=== PATIENT | male | born 1970 | race Caucasian/White ===

== ENCOUNTER 2018-02-03 12:06 | Emergency (ER) | payer MEDICAID ==
--- NOTE | 2018-02-03 12:20 | Emergency Department Record ---
History of Present Illness - General Chief complaint: Pain Stated complaint: LT ELBOW PAIN Time Seen by Provider: 02/03/18 12:12 Source: Patient Mode of Arrival: Ambulatory Limitations: No limitations - History of Present Illness Initial comments: The patient states he has had L elbow pain for about 2 weeks. He denies any injury or trauma. He also denies any numbness or tingling to the L arm. Complaint: Extremity pain Onset/Timin -: Week(s) Location: Left, Elbow - Related Data Allergies Allergy/AdvReac Type Severity Reaction Status Date / Time No Known Drug Allergies Allergy Unverified 12/07/17 14:05 Travel Screening - Travel/Exposure Within Last 30 Days Have you traveled within the last 30 days?: No - Travel/Exposure Within Last Year Have you traveled outside the [place] in the last year?: No - Additonal Travel Details Have you been exposed to anyone with a communicable illness?: No - Travel Symptoms Symptom Screening: None Review of Systems Constitutional: Denies: Chills, Fever Eyes: Denies: Eye discharge ENT: Denies: Congestion Respiratory: Denies: Cough Past Medical History - SOCIAL HISTORY Smoking Status: Heavy tobacco smoker (>10/day) Alcohol Use: None Drug Use: None - RESPIRATORY Hx Respiratory Disorders: Yes Comment:: EMPHYSEMA - CARDIOVASCULAR Hx Cardio Disorders: Yes Hx Hypertension: Yes - NEURO Hx Neuro Disorders: Yes Hx Brain Tumor: Yes (REMOVED AT AGE 13) Hx Headaches: Yes (OCCASIONAL) - GI Hx GI Disorders: Yes Hx Reflux: Yes (CONTROLLED) - Hx Genitourinary Disorders: No - ENDOCRINE Hx Endocrine Disorders: No - MUSCULOSKELETAL Hx Musculoskeletal Disorders: Yes Hx Arthritis: Yes - PSYCH Hx Psych Problems: Yes Hx Anxiety: Yes (CONTROLLED WITH MEDS) - HEMATOLOGY/ONCOLOGY Hx Hematology/Oncology Disorders: Yes Hx Cancer: Yes (Brain DENIES THAT IT WAS CANCER) Family Medical History Any Significant Family History?: No Hx Cancer: Father, Brother/Sister, Grandparents Hx Heart Disease: Father, Brother/Sister, Grandparents Hx HTN: Father, Brother/Sister, Grandparents Hx Stroke: Brother/Sister Physical Exam - General General Appearance: Alert, Cooperative, No acute distress - Head Head exam: Atraumatic, Normocephalic - Eye Eye exam: Normal appearance - Extremities Extremities exam: Normal inspection (THe L elbow appears normal with no erythema , effusion, or bruising.), Full ROM, Tenderness (There is mild posterior L elbow tenderness over the olecranon.), Other (The L arm is NVI.). negative: Joint swelling Course Vital Signs 02/03/18 12:13 Temperature 97.2 F L Pulse Rate 95 H Respiratory 18 Rate Blood Pressure 123/71 Pulse Ox 97 - Reevaluation(s) Reevaluation #1: I did discuss the xray with the patient and the need for F/U. 02/03/18 12:55 Medical Decision Making - Data Complexity MDM Data: X-Ray Ordered and/or Reviewed - Radiology Data Radiology results: Image reviewed (L elbow: Olecranon spur. O/W neg.) Disposition Disposition: Discharge Clinical Impression: Chronic elbow pain Qualifiers: Laterality: left Qualified Code(s): M25.522 - Pain in left elbow Disposition: Home, Self-Care Condition: (2) Stable Instructions: Arthralgia (ED) Additional Instructions: Please continue your regular medicines and see your family doctor and Dr. Rodriguez in the Specialty clinic due to the chronic elbow pain. Referrals: [facility] Specialty Clinics [Provider Group] Forms: Patient Portal Access Time of Disposition: 12:51 Quality - Quality Measures Quality Measures: N/A - Blood Pressure Screening View Details: Yes Does Patient Have Any of the Following: No Blood Pressure Classification: Pre-Hypertensive BP Reading Systolic Measurement: 122 Diastolic Measurement: 76 Screening for High Blood Pressure: < Pre-Hypertensive BP, F/U Documented > [ G8950] Pre-Hypertensive Follow-up Interventions: Referral to alternative/primary care provider.
--- NOTE | 2018-02-05 12:27 | RADIOLOGY REPORT ---
EXAM: LEFT ELBOW HISTORY: POSTERIOR ELBOW PAIN FOR TWO WEEKS, NO KNOWN INJURY. TECHNIQUE: Three views of the left elbow were obtained. Comparison: No prior left elbow series. FINDINGS: There is a small spur along the posterior margin of the olecranon process. Elsewhere the left elbow appears essentially negative. No fracture, dislocation, or definite joint effusion seen. IMPRESSION: SMALL POSTERIOR OLECRANON SPUR. JOB NUMBER: [id number] MTDD
== END 2018-02-03 12:55 | disposition home or self-care (01) ==
LOC: ER 12:06
DX: M25.722 Osteophyte, left elbow (principal); I10 Essential (primary) hypertension; F17.210 Nicotine dependence, cigarettes, uncomplicated
CPT/HCPCS: 99283

== ENCOUNTER 2018-02-07 17:47 | Emergency (ER) | payer MEDICAID ==
--- NOTE | 2018-02-07 18:21 | Emergency Department Record ---
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 Currently he is taking motrin 800 mg Three times a day and the leyva was so bad he left work and came here. Patient was seen here recently for the same thing about one week ago and he had an xray of his elbow than. Patient denies drinking and he used to drink heavy. Seen by Dr. Silva on 02/03/2018. Currently no new falls or trauma he remembers. Location: Left, Elbow History of Same: No Radiation: Proximal, Distal Severity scale (1-10): 9 Quality: Aching Consistency: Constant Improves with: Nothing Worsens with: Nothing Associated Symptoms: Denies other symptoms - Related Data Previous Rx's Medication Instructions Recorded Naproxen [Naprosyn] 500 mg PO Q12H #20 tab. 02/07/18 Allergies Allergy/AdvReac Type Severity Reaction Status Date / Time No Known Drug Allergies Allergy Verified 02/07/18 17:55 Travel Screening - Travel/Exposure Within Last 30 Days Have you traveled within the last 30 days?: No Review of Systems Reviewed: No additional complaints except as noted below Constitutional: Reports: As per HPI. Denies: Chills, Fever, Malaise, Night sweats, Weakness, Weight change Eyes: Reports: As per HPI. Denies: Eye discharge, Eye pain, Photophobia, Vision change ENT: Reports: As per HPI. Denies: Congestion, Dental pain, Ear pain, Epistaxis , Hearing loss, Throat pain Respiratory: Reports: As per HPI. Denies: Cough, Dyspnea, Hemoptysis, Stridor, Wheezes Cardiovascular: Reports: As per HPI. Denies: Arrhythmia, Chest pain, Dyspnea on exertion, Edema, Murmurs, Orthopnea, Palpitations, Paroxysmal nocturnal dyspnea, Rheumatic Fever, Syncope Endocrine: Reports: As per HPI. Denies: Fatigue, Heat or cold intolerance, Polydipsia, Polyuria Gastrointestinal: Reports: As per HPI. Denies: Abdominal pain, Constipation, Diarrhea, Hematemesis, Hematochezia, Melena, Nausea, Vomiting Genitourinary: Reports: As per HPI. Denies: Dysuria, Frequency, Hematuria, Incontinence, Retention, Testicular pain, Testicular mass, Urgency Musculoskeletal: Reports: As per HPI, Arthralgia (left elbow). Denies: Back pain, Gout, Joint swelling, Myalgia, Neck pain Skin: Reports: As per HPI. Denies: Bruising, Change in color, Change in hair/ nails, Lesions, Pruritus, Rash Neurological: Reports: As per HPI. Denies: Abnormal gait, Confusion, Headache, Numbness, Paresthesias, Seizure, Tingling, Tremors, Vertigo, Weakness Psychiatric: Reports: As per HPI. Denies: Anxiety, Auditory hallucinations, Depression, Homicidal thoughts, Suicidal thoughts, Visual hallucinations Hematological/Lymphatic: Reports: As per HPI. Denies: Anemia, Blood Clots, Easy bleeding, Easy bruising, Swollen glands Past Medical History - SOCIAL HISTORY Smoking Status: Heavy tobacco smoker (>10/day) Alcohol Use: None Drug Use: None - RESPIRATORY Hx Respiratory Disorders: Yes Comment:: EMPHYSEMA - CARDIOVASCULAR Hx Cardio Disorders: Yes Hx Hypertension: Yes - NEURO Hx Neuro Disorders: Yes Hx Brain Tumor: Yes (REMOVED AT AGE 13) Hx Headaches: Yes (OCCASIONAL) - GI Hx GI Disorders: Yes Hx Reflux: Yes (CONTROLLED) - Hx Genitourinary Disorders: No - ENDOCRINE Hx Endocrine Disorders: No - MUSCULOSKELETAL Hx Musculoskeletal Disorders: Yes Hx Arthritis: Yes - PSYCH Hx Psych Problems: Yes Hx Anxiety: Yes (CONTROLLED WITH MEDS) - HEMATOLOGY/ONCOLOGY Hx Hematology/Oncology Disorders: Yes Hx Cancer: Yes (Brain DENIES THAT IT WAS CANCER) Family Medical History Any Significant Family History?: Yes Hx Cancer: Father, Brother/Sister, Grandparents Hx Heart Disease: Father, Brother/Sister, Grandparents Hx HTN: Father, Brother/Sister, Grandparents Hx Stroke: Brother/Sister Physical Exam - General General Appearance: Alert, Oriented x3, Cooperative, No acute distress - Head Head exam: Normal inspection - Eye Eye exam: Normal appearance, PERRL Pupils: Normal accommodation - ENT ENT exam: Normal exam, Mucous membranes moist, Normal external ear exam, Normal orophraynx, TM's normal bilaterally Ear exam: Normal external inspection. negative: External canal tenderness Nasal Exam: Normal inspection. negative: Discharge, Sinus tenderness Mouth exam: Normal external inspection, Tongue normal Teeth exam: Normal inspection. negative: Dental caries Throat exam: Normal inspection. negative: Tonsillar erythema, Tonsillar exudate - Neck Neck exam: Normal inspection, Full ROM. negative: Tenderness - Respiratory Respiratory exam: Normal lung sounds bilaterally. negative: Respiratory distress - Cardiovascular Cardiovascular Exam: Regular rate, Normal rhythm, Normal heart sounds - GI/Abdominal GI/Abdominal exam: Soft, Normal bowel sounds. negative: Tenderness - Rectal Rectal exam: Deferred - exam: Deferred - Extremities Extremities exam: Normal inspection, Full ROM, Normal capillary refill, Tenderness (olecronen process pain) - Back Back exam: Reports: Normal inspection, Full ROM. Denies: Muscle spasm, Rash noted, Tenderness - Neurological Neurological exam: Alert, Normal gait, Oriented X3, Reflexes normal - Psychiatric Psychiatric exam: Normal affect, Normal mood - Skin Skin exam: Dry, Intact, Normal color, Warm Course Vital Signs 02/07/18 17:52 Temperature 98.0 F Pulse Rate 99 H Respiratory 20 Rate Blood Pressure 145/85 Pulse Ox 99 Disposition Clinical Impression: Bursitis Qualifiers: Bursitis location: elbow Elbow bursitis location: olecranon bursitis Laterality : left Qualified Code(s): M70.22 - Olecranon bursitis, left elbow Disposition: Home, Self-Care Return To Work/School Note Provided: Yes Condition: (1) Good Instructions: Elbow Bursitis (ED) Additional Instructions: stop motrin and take naprosyn twice a day follow up with family or Dr Rodriguez in one week one arm duty today and back to work tomorrow Prescriptions: Naproxen [Naprosyn] 500 mg PO Q12H #20 tab.dr Forms: Patient Portal Access Time of Disposition: 18:32 Quality - Quality Measures Quality Measures: N/A - Blood Pressure Screening Does Patient Have Any of the Following: No Blood Pressure Classification: Pre-Hypertensive BP Reading Systolic Measurement: 145 Diastolic Measurement: 85 Screening for High Blood Pressure: < Pre-Hypertensive BP, F/U Documented > [ G8950] Pre-Hypertensive Follow-up Interventions: Referral to alternative/primary care provider.
[2018-02-07] MEDS ORDERED: NAPROXEN 250 MG TABLET PO ONE (18:32)
== END 2018-02-07 18:45 | disposition home or self-care (01) ==
LOC: ER 17:47
DX: M70.22 Olecranon bursitis, left elbow (principal); I10 Essential (primary) hypertension; F17.210 Nicotine dependence, cigarettes, uncomplicated
CPT/HCPCS: 99282

== ENCOUNTER 2018-03-01 09:29 | Day surgery (SDC) | payer MEDICAID ==
[2018-03-01] MEDS ORDERED: MIDAZOLAM HCL 2MG/2ML VIAL IV ONE (09:30)
[2018-03-01] MEDS ORDERED: FENTANYL PF 100MCG/2ML VIAL IV ONE (09:30)
[2018-03-01] MEDS ORDERED: HYDROCODONE/APAP 7.5/325MG TABLET PO ONE (09:30)
[2018-03-01] MEDS ORDERED: ACETAMINOPHEN 1,000 MG/100 ML BTL IV ONE (09:30)
[2018-03-01] MEDS ORDERED: SEVOFLURANE 250 ML INH ONE (09:30)
[2018-03-01] MEDS ORDERED: LIDOCAINE 2% MDV (20MG/ML) 20ML VIAL IV ONE (09:30)
[2018-03-01] MEDS ORDERED: ONDANSETRON HCL IV 4 MG/2 ML VIAL IVP ONE (09:30)
[2018-03-01] MEDS ORDERED: KETOROLAC 30 MG/ML VIAL IVP ONE (09:30)
[2018-03-01] MEDS ORDERED: PROPOFOL 10 MG/ML VIAL IV ONE (09:30)
--- NOTE | 2018-03-02 10:40 | Operative Note ---
DATE OF SURGERY: 03/01/2018 Surgeon: Jeffery Rodriguez D.O. Referring physician: Mague Justice N.P. PREOPERATIVE DIAGNOSIS: Olecranon spur of the right proximal ulna. POSTOPERATIVE DIAGNOSIS: Olecranon spur of the right proximal ulna. OPERATION: Excision osteophyte right proximal ulna. Anesthesia: General. PROCEDURE: This 47-year-old male was taken to the operating room and placed in the supine position on the operating room table. General anesthetic was administered. The right elbow was elevated, prepped with Hibiclens and draped in the usual sterile fashion. The right upper extremity was exsanguinated. The tourniquet inflated to 250 mmHg. A curvilinear incision was made centering over the palpable osteophyte and the tip of the olecranon of the right elbow. Dissection carried down through the skin and subcutaneous tissue. Hemostasis obtained with the electrocautery. The incision was carried down to the insertion of the triceps on the osteophyte. A longitudinal incision was made in line with these fibers and we then subperiosteally sharply dissected the tendon off of this osteophyte and removed it with an osteotome. The area was then smoothed with a rasp. It was further smoothed with the rongeur to a smooth contoured surface. The wound was irrigated with lactated Ringer's solution and the triceps tendon was repaired with 0 Vicryl and the subcutaneous tissue closed with 3-0 Vicryl and the skin with a running interlocking 4-0 nylon suture. Sterile dressings were applied with plaster splint immobilization with the elbow flexed at 90 degrees and the forearm in neutral position. GROSS PATHOLOGY: This patient had an osteophyte at the tip of the olecranon, which was very painful for him. This was removed in the manner described above. [facility]
== END 2018-03-01 12:10 | disposition home or self-care (01) ==
LOC: SUR 09:29
PROVIDERS: ATTEND Orthopaedic Surgery
DX: M25.721 Osteophyte, right elbow (principal); I10 Essential (primary) hypertension; E78.00 Pure hypercholesterolemia, unspecified; J44.9 Chronic obstructive pulmonary disease, unspecified; K21.9 Gastro-esophageal reflux disease without esophagitis; F31.9 Bipolar disorder, unspecified; F17.210 Nicotine dependence, cigarettes, uncomplicated
CPT/HCPCS: 25150; 01830; J1885; J2405; J3010

== ENCOUNTER 2018-08-10 13:08 | Emergency (ER) | payer MEDICAID ==
[2018-08-10] MEDS ORDERED: ACETAMINOPHEN 500 MG TABLET PO ONE (13:16)
--- NOTE | 2018-08-10 13:21 | Emergency Department Record ---
History of Present Illness - General Chief Complaint: Ankle/Foot Injury Stated Complaint: LT FOOT INJURY Time Seen by Provider: 08/10/18 13:16 Source: Patient Mode of Arrival: Ambulatory Limitations: No limitations - History of Present Illness Initial Comments: 48 yo male presents with an injury to his left foot and ankle. 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 This occurred about an hour prior to arrival. He has had persistent pain with weight bearing. No other injuries. No blood thinners. He did not hit his head. No headache, no neck pain, no chest, back, or other extremity pain. MD Complaint: Ankle injury, Foot injury -: Hour(s) (1) Type of Injury: Other (fall) Place: Work Severity: Moderate Improves With: Immobilization Worsens With: Movement, Palpation, Weight bearing Context: Fall Other Symptoms: Other (None) Treatments Prior to Arrival: Other (None) - Related Data Previous Rx's Medication Instructions Recorded Naproxen [Naprosyn] 500 mg PO Q12H #20 tab.dr 02/07/18 Hydrocodone/APAP 5/325Mg [[place] 1 each PO Q6H #12 tab 08/10/18 5Mg/325Mg] Allergies Allergy/AdvReac Type Severity Reaction Status Date / Time No Known Drug Allergies Allergy Verified 02/07/18 17:55 Review of Systems Constitutional: Denies: Chills, Fever, Malaise, Weakness Eyes: Denies: Eye discharge, Eye pain, Photophobia, Vision change ENT: Denies: Congestion, Throat pain Respiratory: Denies: Hemoptysis, Wheezes Cardiovascular: Denies: Chest pain, Palpitations, Syncope Endocrine: Denies: Fatigue Gastrointestinal: Denies: Abdominal pain, Diarrhea, Nausea, Vomiting Genitourinary: Denies: Dysuria, Frequency, Hematuria Musculoskeletal: Reports: As per HPI, Arthralgia. Denies: Back pain Skin: Denies: Bruising, Change in color, Rash Neurological: Denies: Headache Psychiatric: Denies: Anxiety Hematological/Lymphatic: Denies: Easy bleeding, Easy bruising Past Medical History - SOCIAL HISTORY Smoking Status: Heavy tobacco smoker (>10/day) Alcohol Use Comment: used to drink heavy none for 8 months - RESPIRATORY Hx Respiratory Disorders: Yes Hx Bronchitis: Yes Hx COPD: Yes (doesnt use inhalers "but I should") Hx Dyspnea: Yes Hx Pulmonary Embolism: Yes - CARDIOVASCULAR Hx Cardio Disorders: Yes Hx Hypertension: Yes (on meds good control) - NEURO Hx Neuro Disorders: Yes Hx Brain Tumor: Yes (REMOVED AT AGE 13) Hx Headaches: Yes (OCCASIONAL) Comment:: hx of concussion at age 13 - GI Hx GI Disorders: Yes Hx Reflux: Yes (fair control with zantac) - Hx Genitourinary Disorders: No - ENDOCRINE Hx Endocrine Disorders: No - MUSCULOSKELETAL Hx Musculoskeletal Disorders: Yes Hx Arthritis: Yes Comment:: elbow pain - PSYCH Hx Psych Problems: Yes Hx Anxiety: Yes (CONTROLLED WITH MEDS) Hx Depression: Yes (bipolar) - HEMATOLOGY/ONCOLOGY Hx Hematology/Oncology Disorders: No Hx Cancer: No (denies) Family Medical History Hx Cancer: Father, Brother/Sister, Grandparents Hx Heart Disease: Father, Brother/Sister, Grandparents Hx HTN: Father, Brother/Sister, Grandparents Hx Stroke: Brother/Sister Physical Exam - General General Appearance: Alert, Oriented x3, Cooperative, No acute distress Limitations: No limitations - Head Head exam: Atraumatic, Normal inspection - Eye Eye exam: Normal appearance, PERRL. negative: Conjunctival injection, Periorbital swelling, Scleral icterus - ENT ENT exam: Normal exam Ear exam: Normal external inspection Nasal Exam: Normal inspection Mouth exam: Normal external inspection - Neck Neck exam: Normal inspection, Full ROM. negative: Tenderness - Respiratory Respiratory exam: Normal lung sounds bilaterally. negative: Respiratory distr ess, Rhonchi, Stridor, Wheezes - Cardiovascular Cardiovascular Exam: Regular rate, Normal rhythm, Normal heart sounds - GI/Abdominal GI/Abdominal exam: Soft. negative: Tenderness - Rectal Rectal exam: Deferred - exam: Deferred - Extremities Extremities exam: Full ROM, Joint swelling, Normal capillary refill, Tenderness Image of Feet: 1 - lateral tenderness and swelling 2 - tender, normal inspection, no deformity - Back Back exam: Reports: Normal inspection, Full ROM. Denies: CVA tenderness (R), CVA tenderness (L), Muscle spasm, Paraspinal tenderness, Tenderness, Vertebral tenderness - Neurological Neurological exam: Alert, Oriented X3 - Psychiatric Psychiatric exam: Normal affect, Normal mood - Skin Skin exam: Dry, Intact, Normal color, Warm Course - Reevaluation(s) Reevaluation #1: 08/10/18 14:54 The XR was reviewed. Fracture of the anterior process of the calcaneous and lateral process of the talus. CT recommended and ordered. 08/10/18 15:[address] scan was reviewed The patient has a comminuted talar fracture predominately posterior, and a calcaneal fracture anterior at the calcaneal cuboid joint I SW Dr Arango of [facility] Podiatry and discussed the CT. He will see the patient on Monday in the office. The patient was re-examined head to toe. No headache, no neck pain, no back or lumbar pain. No other joint pain. He has a small contusion on the right anterior mg that is minimal tender. 08/10/18 16:10 At DC the leg, calf, ankle and foot are soft, mild swelling, warm to touch, strong pulses. No signs of compartment syndrome or any other complication from the fractures. We discussed reasons to return and close follow up. Disposition Disposition: Discharge Clinical Impression: Left calcaneal fracture Qualifiers: Encounter type: initial encounter Calcaneus location: unspecified portion of calcaneus Fracture type: closed Fracture alignment: displaced Qualified Code(s): S92.002A - Unspecified fracture of left calcaneus, initial encounter for closed fracture Talus fracture Qualifiers: Encounter type: initial encounter Fracture type: closed Talus location: unspecified portion of talus Fracture alignment: nondisplaced Laterality: left Qualified Code(s): S92.102A - Unspecified fracture of left talus, initial encounter for closed fracture Disposition: Home, Self-Care Condition: (1) Good Instructions: Foot Fracture in Adults (ED) Additional Instructions: No weight bearing Use crutches at all times when walking Follow up on Monday with Dr Arango in the podiatry clinic Take your CD with your to your appointment Prescriptions: Hydrocodone/APAP 5/325Mg [[place] 5Mg/325Mg] 1 each PO Q6H #12 tab Referrals: EVELYN ARANGO D.P.MWili [DOCTOR OF PODIATRY MEDICINE] - [facility] Specialty Clinics [Provider Group] Forms: Patient Portal Access Time of Disposition: 15:51 Quality - Quality Measures Quality Measures: N/A - Blood Pressure Screening Does Patient Have Any of the Following: No Blood Pressure Classification: Normal BP Reading Systolic Measurement: 113 Diastolic Measurement: 70 Screening for High Blood Pressure: < Normal BP, F/U Not Required > [G8783]
[2018-08-10] MEDS ORDERED: MORPHINE SULFATE 10MG/1ML **1ML VIAL IVP ONE (15:35)
--- NOTE | 2018-08-13 08:28 | RADIOLOGY REPORT ---
EXAM: LEFT ANKLE, THREE VIEWS HISTORY: PAIN AFTER FALL OFF LADDER. TECHNIQUE: Three views of the left ankle were obtained. Encounter: Initial. FINDINGS: There is fracture through the anterior process of the calcaneus, best seen on lateral view. On the AP view, there is vertical lucency through the lateral process of the talus. There is an additional subtle lucency at the talar dome. No lateral or medial malleolus fracture is identified. The ankle joint is symmetric. There is an ankle joint effusion and surround soft tissue swelling. IMPRESSION: FRACTURE THROUGH THE ANTERIOR PROCESS OF THE CALCANEUS, AND SUSPECTED FRACTURE OF THE LATERAL PROCESS OF THE TALUS. AN ADDITIONAL NONDISPLACED FRACTURE IS POSSIBLE AT THE TALAR DOME. CT IS RECOMMENDED FOR FURTHER EVALUATION. JOB NUMBER: [id number] MTDD
--- NOTE | 2018-08-13 08:40 | RADIOLOGY REPORT ---
EXAM: LEFT FOOT, THREE VIEWS HISTORY: PAIN AFTER FALL OFF LADDER. TECHNIQUE: AP, oblique, and lateral views of the left foot were obtained. Comparison: None. Encounter: Initial. FINDINGS: There is fracture through the anterior process of the calcaneus. Possible talar fractures, better seen on ankle radiographs. No other fracture or dislocation is identified in the left foot. IMPRESSION: FRACTURE THROUGH THE ANTERIOR PROCESS OF THE CALCANEUS, AND SUSPECTED TALAR FRACTURES BETTER SEEN ON LEFT ANKLE RADIOGRAPHS. CT OF THE LEFT ANKLE AND FOOT IS RECOMMENDED. JOB NUMBER: [id number] MTDD
--- NOTE | 2018-08-13 09:45 | CT SCAN REPORT ---
EXAM: CT OF THE LEFT LOWER EXTREMITY WITHOUT CONTRAST HISTORY: LEFT FOOT FRACTURES AFTER FALL OFF LADDER. TECHNIQUE: Standard CT imaging of the left ankle and foot without contrast was obtained. Coronal and sagittal reformations are provided. 3D reformations are created. FINDINGS: There is a comminuted nondisplaced fracture of the talus, with fracture lines involving the subtalar joints and talar dome articular surface. There is comminution at the lateral process. There is a minimally displaced fracture through the base of the anterior process of the calcaneus. There is also a small fracture from the lateral aspect of the calcaneus. The fracture at the anterior process of the calcaneus is intraarticular at the calcaneal cuboid joint. There is mild widening of this joint. No other fracture is identified. With additional review of the anterior calcaneus fracture, there is a vertical component extending all the way through the anterior portion of the calcaneus and related to the talus fracture, the talar fracture is predominantly posteriorly. A fracture line is not seen through the talar neck. IMPRESSION: COMMINUTED TALAR FRACTURE, AND COMMINUTED ANTERIOR CALCANEAL FRACTURE. THERE IS ALSO A SMALL FRACTURE FROM THE LATERAL ASPECT OF THE CALCANEUS. JOB NUMBER: [id number] MTDD
== END 2018-08-10 16:32 | disposition home or self-care (01) ==
LOC: ER 13:08
DX: S92.025A Nondisplaced fracture of anterior process of left calcaneus, initial encounter for closed fracture (principal); S92.145A Nondisplaced dome fracture of left talus, initial encounter for closed fracture; W11.XXXA Fall on and from ladder, initial encounter; Y93.H9 Activity, other involving exterior property and land maintenance, building and construction; Y92.007 Garden or yard of unspecified non-institutional (private) residence as the place of occurrence of the external cause; Y99.0 Civilian activity done for income or pay; I10 Essential (primary) hypertension; F17.210 Nicotine dependence, cigarettes, uncomplicated
CPT/HCPCS: 29515; 99284 ×2; 96374; 73610; 73630; 73700; J2270

== ENCOUNTER 2019-01-22 08:45 | Emergency (ER) | payer MEDICAID ==
[2019-01-22] MEDS: KETOROLAC 30 MG/ML VIAL IVP ONE (08:58)
--- NOTE | 2019-01-22 08:58 | Emergency Department Record ---
History of Present Illness - General Chief complaint: Pain Stated complaint: RIB PAIN Time Seen by Provider: 01/22/19 08:50 Source: Patient Mode of Arrival: Ambulatory Limitations: No limitations - History of Present Illness Initial comments: 48 yo male presents with constant left sided rib pain since . 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 He was bending over a toilet and felt a sharp pain on the left chest. The pain has been constant since then. It is sharp, it worsens with changes in position, movements, coughing, and to palpate. He has been coughing more for the last 3 days with some production. No fever. No shortness of breath. No leg pain. The pain hurts lateral left chest in the mid chest to the lower rib margins. No rash. No history of prior heart or lung issues. PCP is Dr Ashley in [place]. Complaint: Other (Left chest wall pain) -: Days(s) Location: Other (Left ribs) -: Yes Myalgia Radiation: Other Quality: Aching, Sharp Consistency: Constant Improves with: Immobilization Worsens with: Palpation, Weight bearing Associated Symptoms: Denies other symptoms - Related Data Home Medications Medication Instructions Recorded Confirmed Last Taken Esomeprazole Magnesium [Nexium] 40 mg PO DAILY 01/22/19 01/22/19 1 Day Ago ~01/21/19 Previous Rx's Medication Instructions Recorded Azithromycin [Zithromax] 250 mg PO DAILY #6 tab 01/22/19 Allergies Allergy/AdvReac Type Severity Reaction Status Date / Time No Known Drug Allergies Allergy Verified 01/22/19 08:53 Review of Systems Constitutional: Denies: Chills, Fever, Malaise, Weakness Eyes: Denies: Eye discharge ENT: Denies: Congestion, Throat pain Respiratory: Reports: Cough. Denies: Dyspnea, Hemoptysis, Wheezes Cardiovascular: Reports: Chest pain. Denies: Edema, Palpitations, Syncope Endocrine: Denies: Fatigue, Polydipsia, Polyuria Gastrointestinal: Denies: Abdominal pain, Diarrhea, Nausea, Vomiting Genitourinary: Denies: Dysuria, Frequency, Hematuria Musculoskeletal: Denies: Arthralgia, Back pain, Myalgia, Neck pain Neurological: Denies: Headache, Numbness, Tingling, Weakness Psychiatric: Denies: Anxiety Hematological/Lymphatic: Denies: Easy bleeding, Easy bruising Past Medical History - SOCIAL HISTORY Smoking Status: Heavy tobacco smoker (>10/day) Alcohol Use Comment: used to drink heavy none for 8 months - RESPIRATORY Hx Respiratory Disorders: Yes Hx Bronchitis: Yes Hx COPD: Yes (doesnt use inhalers "but I should") Hx Dyspnea: Yes Hx Pulmonary Embolism: Yes - CARDIOVASCULAR Hx Cardio Disorders: Yes Hx Hypertension: Yes (on meds good control) - NEURO Hx Neuro Disorders: Yes Hx Brain Tumor: Yes (REMOVED AT AGE 13) Hx Headaches: Yes (OCCASIONAL) Comment:: hx of concussion at age 13 - GI Hx GI Disorders: Yes Hx Reflux: Yes (fair control with zantac) - Hx Genitourinary Disorders: No - ENDOCRINE Hx Endocrine Disorders: No - MUSCULOSKELETAL Hx Musculoskeletal Disorders: Yes Hx Arthritis: Yes Comment:: elbow pain - PSYCH Hx Psych Problems: Yes Hx Anxiety: Yes (CONTROLLED WITH MEDS) Hx Depression: Yes (bipolar) - HEMATOLOGY/ONCOLOGY Hx Hematology/Oncology Disorders: No Hx Cancer: No (denies) Family Medical History Hx Cancer: Father, Brother/Sister, Grandparents Hx Heart Disease: Father, Brother/Sister, Grandparents Hx HTN: Father, Brother/Sister, Grandparents Hx Stroke: Brother/Sister Physical Exam - General General Appearance: Alert, Oriented x3, Cooperative, No acute distress Limitations: No limitations - Head Head exam: Atraumatic, Normal inspection - Eye Eye exam: Normal appearance. negative: Conjunctival injection - ENT ENT exam: Normal exam Ear exam: Normal external inspection Nasal Exam: Normal inspection Mouth exam: Normal external inspection - Neck Neck exam: Normal inspection. negative: Lymphadenopathy, Tenderness - Respiratory Respiratory exam: Normal lung sounds bilaterally, Chest wall tenderness (The left rib/chest wall pain is reproducible with tenderness over the mid ribs to lower ribs, no crepitus, . No rash). negative: Accessory muscle use, Decreased breath sounds, Prolonged expiratory, Respiratory distress, Rhonchi, Stridor, Wheezes - Cardiovascular Cardiovascular Exam: Regular rate, Normal rhythm, Normal heart sounds Peripheral Pulses: 2+: Radial (L) - GI/Abdominal GI/Abdominal exam: Soft, Tenderness (tender LUQ but soft). negative: Distended, Guarding, Rebound, Rigid - Rectal Rectal exam: Deferred - exam: Deferred - Extremities Extremities exam: Normal inspection - Back Back exam: Reports: CVA tenderness (L). Denies: CVA tenderness (R), Paraspinal tenderness, Tenderness - Neurological Neurological exam: Alert, Oriented X3 - Psychiatric Psychiatric exam: Normal affect, Normal mood. negative: Agitated, Anxious - Skin Skin exam: Dry, Intact, Normal color, Warm Course Vitals reviewed No fever, hypoxia or tachycardia - Reevaluation(s) Reevaluation #1: 01/22/19 08:59 EKG #1: 08:51 Rate: 89 Rhythm: sinus Laurel: normal Intervals: normal ST segments: normal Normal EKG 01/22/19 09:16 The CBC was reviewed. The WBC is 14 The Hgb is 11.3 01/22/19 09:16 The Toradol was given. He reports no changes in pain level. On recheck he is foundry tender in the LUQ. 01/22/19 09:27 CXR negative for acute process Given the labs and LUQ tenderness associated I recommend CT as well 01/22/19 10:59 01/22/19 12:36 CT reviewed. See full report. Right sided tree in bud opacities. He will be treated with another round of antibiotics and encourage follow up in the next one week with his PCP 01/22/19 12:[address] was given to the patient with the instructions to review it with his doctor in the next week Medical Decision Making - Lab Data Result diagrams: 01/22/19 08:55 01/22/19 08:55 Disposition Disposition: Discharge Clinical Impression: Chest wall pain, Bronchiolitis Disposition: Home, Self-Care Condition: (1) Good Instructions: Bronchiolitis (ED), Chest Wall Pain (ED) Additional Instructions: Review this ER visit and the tests performed with your family doctor Call your doctor for the next available follow up appointment Return to the ER for a recheck if worse, any new concerns or questions Take the prescriptions provided as directed Prescriptions: Azithromycin [Zithromax] 250 mg PO DAILY #6 tab Forms: Patient Portal Access Time of Disposition: 12:38 Quality - Quality Measures Quality Measures: N/A - Blood Pressure Screening Does Patient Have Any of the Following: Active Dx of HTN Blood Pressure Classification: Pre-Hypertensive BP Reading Systolic Measurement: 134 Diastolic Measurement: 79 Screening for High Blood Pressure: Patient Exclusion, Hx of HTN [G9744]
[2019-01-22 09:04] LABS: BASO % 0.4 % (0-6); GRAN % 74.3 % (47-80); HEMATOCRIT 36.3 % (42.0-52.0); HEMOGLOBIN 11.3 gm/dl (14.0-18.0); LYMPH % 15.7 % (16-45); MEAN CELL VOLUME 88.5 fl (81-97); MEAN CORPUSCULAR HGB CONC 31.1 g/dl (32-36); MEAN PLATELET VOLUME 10.1 fl (7.4-10.4); MONO % 7.6 % (0-9); PLATELET COUNT 317 K/uL (130-400); WHITE BLOOD COUNT W/O DIFF 14.8 K/uL (4.2-12.2)
[2019-01-22 09:09] LABS: MEAN CORPUSCULAR HEMOGLOBIN 27.5 pg (27-33)
[2019-01-22 09:17] LABS: BLOOD UREA NITROGEN 14 mg/dL (6-20); CREATININE 0.7 mg/dL (0.7-1.2); EST GLOMERULAR FILTRATION RATE > 60 mL/min
[2019-01-22 09:20] LABS: GLUCOSE,RANDOM 106 mg/dL (74-109)
--- NOTE | 2019-01-22 09:29 | RADIOLOGY REPORT ---
EXAMINATION: Two View Chest Radiographs EXAM DATE: 01/22/2019 9:25 AM TECHNIQUE: Frontal and lateral views INDICATION: left chest pain COMPARISON: None ENCOUNTER: Not applicable FINDINGS: Cardiomediastinal structures unremarkable. Hyperinflation. Discoid atelectasis or scarring left base. No pulmonary consolidation or infiltration. No pneumothorax or pleural effusion. IMPRESSION: 1. Hyperinflation 2. Discoid atelectasis or scarring left base Dictated by: Devin Doherty MD on 01/22/2019 9:25 AM. .
[2019-01-22] MEDS: MORPHINE SULFATE 5 MG/ML VIAL IVP ONE (09:39)
--- NOTE | 2019-01-22 12:32 | CT SCAN REPORT ---
EXAMINATION: CT Chest, Abdomen and Pelvis with Contrast EXAM DATE: 01/22/2019 11:59 AM TECHNIQUE: Standard protocol CT images of the chest, abdomen and pelvis were performed with intraveno us contrast. Coronal and sagittal images were reconstructed. IV Contrast: The amount and type of contrast are recorded in the medical record. INDICATION: left rib, left upper quadrant tenderness COMPARISON: None ENCOUNTER: Not applicable CT CHEST FINDINGS: Base of Neck & Axillae: There is no adenopathy. Mediastinum & Elina: There is no signal mediastinal or hilar adenopathy. Upper normal mediastinal lymp h nodes. Cardiovascular: The heart has a normal size. There is no pericardial effusion. The thoracic aorta an d main pulmonary artery have a normal caliber. Tracheobronchial Structures: There is no bronchial wall thickening or bronchiectasis. Lung Parenchyma: Moderate scattered tree-in-bud opacities throughout the right upper lobe, to lesser extent posterior aspect of the right middle lobe, and moderately involving the right lower lobe. Left lung is fairly clear other than minimal subsegmental atelectasis or scarring at the lingula. Pleural Space: There are no pleural effusions. There is no pneumothorax. Chest Wall & Musculoskeletal: No suspicious bone lesions. Unremarkable ribs. No mass. No focal fluid collection. CT ABDOMEN AND PELVIS FINDINGS: Hepatobiliary: The liver has a normal size with a smooth surface. The hepatic and portal veins appear patent. There is no biliary dilatation and the gallbladder is unremarkable. Pancreas: The pancreas is normal. Spleen: Nonenlarged. Scattered tiny calcified granulomas present. No evidence of contusion, laceratio n, or subcapsular hematoma. No lesions. Adrenals: The adrenal glands are normal. Kidneys, Ureters, & Bladder: Both kidneys have a normal size and there is no hydronephrosis. There is a partially exophytic cortical 7 mm hypodensity probably representing a cyst anteriorly at the lower pole of the right kidney. Otherwise unremarkable kidneys. Both ureters have a normal caliber and th e urinary bladder is unremarkable. Gastrointestinal: The stomach and small bowel are normal with no obstruction or inflammation. The rachel endix is normal. The large bowel is normal. There is a mostly calcified ovoid 12 x 17 mm nodule in t he distal perisigmoidal region of the rectosigmoid colon just right of midline which probably relates to sequela of chronic epiploic appendagitis. Reproductive Organs: Unremarkable Lymphatic System: There is no adenopathy within the abdomen or pelvis. Vasculature: Normal caliber abdominal aorta with mild atherosclerotic disease. The main abdominal ao rtic branch vessels including the celiac, mesenteric, and renal arteries appear patent with no eviden ce of a stenosis. There is no evidence for mesenteric venous thrombosis. Peritoneum: No free fluid, free air, or inflammation Abdominal Wall & Musculoskeletal: No suspicious bone lesions. IMPRESSION: 1. Right lung nonspecific tree-in-bud opacities diffusely which may more commonly represent infective bronchiolitis. Other inflammatory or neoplastic processes not excluded. 2. Incidental findings as above. Dictated by: Clyde Chaparro DO on 01/22/2019 12:10 PM. .
== END 2019-01-22 13:04 | disposition home or self-care (01) ==
LOC: ER 08:45
DX: J21.9 Acute bronchiolitis, unspecified (principal); R07.89 Other chest pain; J44.9 Chronic obstructive pulmonary disease, unspecified; I10 Essential (primary) hypertension; F17.210 Nicotine dependence, cigarettes, uncomplicated
CPT/HCPCS: 71046; 71260; 74177; 80048; 85025; 93005; 93010; 96374; 96375; 99284; J1885

== ENCOUNTER 2019-02-11 15:41 | Inpatient (IN) | payer MEDICAID ==
[2019-02-11 16:38] LABS: INFLUENZA A NEGATIVE (NEGATIVE); INFLUENZA B NEGATIVE (NEGATIVE)
[2019-02-11] MEDS ORDERED: ONDANSETRON HCL IV 4 MG/2 ML VIAL IVP ONE (16:55)
[2019-02-11] MEDS ORDERED: ACETAMINOPHEN 1,000 MG/100 ML BTL IVPB ONE (16:56)
[2019-02-11 17:21] LABS: ABSOLUTE NEUTROPHIL COUNT 10.89; BASO % 0.3 % (0-6); EOS % 0.3 % (0-6); GRAN % 74.9 % (47-80); HEMATOCRIT 34.1 % (42.0-52.0); HEMOGLOBIN 10.8 gm/dl (14.0-18.0); LYMPH % 13.2 % (16-45); MEAN CELL VOLUME 87.2 fl (81-97); MEAN CORPUSCULAR HEMOGLOBIN 27.6 pg (27-33); MEAN CORPUSCULAR HGB CONC 31.7 g/dl (32-36); MEAN PLATELET VOLUME 10.6 fl (7.4-10.4); MONO % 11.3 % (0-9); PLATELET COUNT 247 K/uL (130-400); RED BLOOD COUNT 3.91 M/uL (4.40-5.70); RED CELL DISTRIBUTION WIDTH 14.7 % (11.5-14.5); WHITE BLOOD COUNT W/O DIFF 14.6 K/uL (4.2-12.2)
[2019-02-11 17:29] LABS: BLOOD UREA NITROGEN 15 mg/dL (6-20); CREATININE 0.7 mg/dL (0.7-1.2); EST GLOMERULAR FILTRATION RATE > 60 mL/min
[2019-02-11 17:30] LABS: TOTAL PROTEIN 7.2 g/dL (6.6-8.7)
[2019-02-11 17:32] LABS: GLUCOSE,RANDOM 113 mg/dL (74-109)
[2019-02-11 17:34] LABS: ALT/SGPT 14 U/L (<41); AST/SGOT 13 U/L (10.0-50.0)
[2019-02-11 17:35] LABS: ALBUMIN 3.6 g/dL (4.0-5.0); ALKALINE PHOSPHATASE 122 U/L (40-129)
--- NOTE | 2019-02-11 17:43 | RADIOLOGY REPORT ---
EXAMINATION: Two View Chest Radiographs EXAM DATE: 02/11/2019 5:26 PM TECHNIQUE: Frontal and lateral views INDICATION: cough COMPARISON: Chest CT 01/22/2019 ENCOUNTER: Not applicable FINDINGS: New dense airspace disease in the superior segment of the right lower lobe measuring 9 cm in size con sistent with pneumonia. Diaphragm and osseous structures are unremarkable. IMPRESSION: 1. New dense consolidation in the superior segment of the right lower lobe consistent with pneumonia. Dictated by: Dinesh Ureña MD on 02/11/2019 5:40 PM. .
[2019-02-11] MEDS ORDERED: CEFTRIAXONE 1GM/50ML BAG 1 GM/50 ML BAG IVPB ONE (18:17)
--- NOTE | 2019-02-11 18:17 | Emergency Department Record ---
History of Present Illness - General Chief complaint: Vomiting Stated complaint: VOMITTING,FEVER,HEADACHE Time Seen by Provider: 02/11/19 16:44 Source: Patient, Family Mode of Arrival: Ambulatory Limitations: No limitations - History of Present Illness Initial comments: pt was here on 01/22 and was dxd w bronchiolitis and took a course of zithromax. pt feels hes gotten worse with prod yellow cough and now he is vomiting and aches all over MD complaint: Nausea, Vomiting Onset/Timin -: Days(s) Severity: Moderate Consistency: Constant, Getting worse Improves with: None Worsens with: None Associated Symptoms: Fever/chills, Other - Related Data Allergies Allergy/AdvReac Type Severity Reaction Status Date / Time No Known Drug Allergies Allergy Verified 01/22/19 08:53 Travel Screening - Travel/Exposure Within Last 30 Days Have you traveled within the last 30 days?: No - Travel/Exposure Within Last Year Have you traveled outside the [place] in the last year?: No - Additonal Travel Details Have you been exposed to anyone with a communicable illness?: No - Travel Symptoms Symptom Screening: Joint & Muscle Aches Review of Systems Reviewed: No additional complaints except as noted below Constitutional: Reports: As per HPI. Denies: Chills, Fever, Malaise, Night sweats, Weakness, Weight change Eyes: Reports: As per HPI. Denies: Eye discharge, Eye pain, Photophobia, Vision change ENT: Reports: As per HPI. Denies: Congestion, Dental pain, Ear pain, Epistaxis, Hearing loss, Throat pain Respiratory: Reports: As per HPI, Cough, Dyspnea. Denies: Hemoptysis, Stridor, Wheezes Cardiovascular: Reports: As per HPI. Denies: Arrhythmia, Chest pain, Dyspnea on exertion, Edema, Murmurs, Orthopnea, Palpitations, Paroxysmal nocturnal dyspnea, Rheumatic Fever, Syncope Endocrine: Reports: As per HPI. Denies: Fatigue, Heat or cold intolerance, Polydipsia, Polyuria Gastrointestinal: Reports: As per HPI, Nausea, Vomiting. Denies: Abdominal pain, Constipation, Diarrhea, Hematemesis, Hematochezia, Melena Genitourinary: Reports: As per HPI. Denies: Dysuria, Frequency, Hematuria, Incontinence, Retention, Testicular pain, Testicular mass, Urgency Musculoskeletal: Reports: As per HPI, Myalgia. Denies: Arthralgia, Back pain, Gout, Joint swelling, Neck pain Skin: Reports: As per HPI. Denies: Bruising, Change in color, Change in hair/nails, Lesions, Pruritus, Rash Neurological: Reports: As per HPI. Denies: Abnormal gait, Confusion, Headache, Numbness, Paresthesias, Seizure, Tingling, Tremors, Vertigo, Weakness Psychiatric: Reports: As per HPI. Denies: Anxiety, Auditory hallucinations, Depression, Homicidal thoughts, Suicidal thoughts, Visual hallucinations Hematological/Lymphatic: Reports: As per HPI. Denies: Anemia, Blood Clots, Easy bleeding, Easy bruising, Swollen glands Past Medical History - SOCIAL HISTORY Smoking Status: Heavy tobacco smoker (>10/day) Alcohol Use: None Drug Use: None - RESPIRATORY Hx Respiratory Disorders: Yes Hx Bronchitis: Yes Hx COPD: Yes (doesnt use inhalers "but I should") Hx Dyspnea: Yes Hx Pulmonary Embolism: Yes - CARDIOVASCULAR Hx Cardio Disorders: Yes Hx Hypertension: Yes (on meds good control) - NEURO Hx Neuro Disorders: Yes Hx Brain Tumor: Yes (REMOVED AT AGE 13) Hx Headaches: Yes (OCCASIONAL) Comment:: hx of concussion at age 13 - GI Hx GI Disorders: Yes Hx Reflux: Yes (fair control with zantac) - Hx Genitourinary Disorders: No - ENDOCRINE Hx Endocrine Disorders: No - MUSCULOSKELETAL Hx Musculoskeletal Disorders: Yes Hx Arthritis: Yes Comment:: elbow pain - PSYCH Hx Psych Problems: Yes Hx Anxiety: Yes (CONTROLLED WITH MEDS) Hx Depression: Yes (bipolar) - HEMATOLOGY/ONCOLOGY Hx Hematology/Oncology Disorders: No Hx Cancer: No (denies) Family Medical History Any Significant Family History?: No Hx Cancer: Father, Brother/Sister, Grandparents Hx Heart Disease: Father, Brother/Sister, Grandparents Hx HTN: Father, Brother/Sister, Grandparents Hx Stroke: Brother/Sister Physical Exam - General General Appearance: Alert, Oriented x3, Cooperative, Mild distress - Head Head exam: Normal inspection - Eye Eye exam: Normal appearance, PERRL, EOMI Pupils: Normal accommodation - ENT ENT exam: Normal exam, Mucous membranes moist, Normal external ear exam, Normal orophraynx Ear exam: Normal external inspection. negative: External canal tenderness Nasal Exam: Normal inspection. negative: Discharge, Sinus tenderness Mouth exam: Normal external inspection, Tongue normal Teeth exam: Normal inspection. negative: Dental caries Throat exam: Normal inspection. negative: Tonsillar erythema, Tonsillar exudate - Neck Neck exam: Normal inspection, Full ROM. negative: Tenderness - Respiratory Respiratory exam: Rales. negative: Respiratory distress - Cardiovascular Cardiovascular Exam: Regular rate, Normal rhythm, Normal heart sounds - GI/Abdominal GI/Abdominal exam: Soft, Normal bowel sounds. negative: Tenderness - Rectal Rectal exam: Deferred - exam: Deferred - Extremities Extremities exam: Normal inspection, Full ROM, Normal capillary refill. negative: Tenderness - Back Back exam: Reports: Normal inspection, Full ROM. Denies: Muscle spasm, Rash noted, Tenderness - Neurological Neurological exam: Alert, CN II-XII intact, Normal gait, Oriented X3 - Psychiatric Psychiatric exam: Normal affect, Normal mood - Skin Skin exam: Dry, Intact, Normal color, Warm Course Vital Signs 02/11/19 02/11/19 16:13 17:31 Temperature 99.6 F Pulse Rate 95 H Pulse Rate [ 90 Pulse Ox Probe] Respiratory 18 16 Rate Blood Pressure 123/78 Blood Pressure 115/69 [Right Arm] Pulse Ox 97 98 Medical Decision Making - Lab Data Result diagrams: 02/11/19 17:10 02/11/19 17:10 Lab Results 02/11/19 02/11/19 02/11/19 Range/Units 17:10 17:10 Unknown WBC 14.6 H (4.2-12.2) K/uL RBC 3.91 L (4.40-5.70) M/uL Hgb 10.8 L (14.0-18.0) gm/dl Hct 34.1 L (42.0-52.0) % MCV 87.2 (81-97) fl MCH 27.6 (27-33) pg MCHC 31.7 L (32-36) g/dl RDW 14.7 H (11.5-14.5) % Plt Count 247 (130-400) K/uL MPV 10.6 H (7.4-10.4) fl Gran % 74.9 (47-80) % Lymphocytes % 13.2 L (16-45) % Monocytes % 11.3 H (0-9) % Eosinophils % 0.3 (0-6) % Basophils % 0.3 (0-6) % Absolute Neutrophils 10.89 Sodium 135 L (136-145) mmol/L Potassium 3.6 (3.4-4.5) mmol/L Chloride 98 (98-107) mmol/L Carbon Dioxide 24.0 (22-29) mmol/L Anion Gap 13.0 (7-16) BUN 15 (6-20) mg/dL Creatinine 0.7 (0.7-1.2) mg/dL Estimated GFR > 60 mL/min Random Glucose 113 H (74-109) mg/dL Calcium 9.3 (8.6-10.0) mg/dL Total Bilirubin 0.30 (0.2-1.0) mg/dL AST 13 (10.0-50.0) U/L ALT 14 (<41) U/L Alkaline Phosphatase 122 (40-129) U/L Total Protein 7.2 (6.6-8.7) g/dL Albumin 3.6 L (4.0-5.0) g/dL Globulin 3.6 (1.4-4.8) gm/dL Albumin/Globulin Ratio 1.0 L (1.1-1.8) Influenza Type A Ag Negative (NEGATIVE) Influenza Type B Ag Negative (NEGATIVE) Disposition Disposition: Admit Clinical Impression: Pneumonia Qualifiers: Pneumonia type: due to unspecified organism Laterality: right Lung location: lower lobe of lung Qualified Code(s): J18.9 - Pneumonia, unspecified organism Disposition: Still a Patient at [facility] Decision to Admit: Admit from ER Decision to Admit Date: 02/11/19 Decision to Admit Time: 18:23 Quality - Quality Measures Quality Measures: N/A - Blood Pressure Screening Does Patient Have Any of the Following: No Blood Pressure Classification: Pre-Hypertensive BP Reading Systolic Measurement: 123 Diastolic Measurement: 78 Screening for High Blood Pressure: < Pre-Hypertensive BP, F/U Documented > [G8950] Pre-Hypertensive Follow-up Interventions: Follow-up with rescreen every year.
[2019-02-11] MEDS ORDERED: ALBUTEROL SULFATE (0.083%) 2.5 MG/3 ML NEB INH PRN (21:16)
[2019-02-11] MEDS ORDERED: ONDANSETRON HCL IV 4 MG/2 ML VIAL IVP PRN (21:19)
[2019-02-11] MEDS ORDERED: GUAIFENESIN/D-METH. 10 ML UDC PO PRN (21:19)
[2019-02-11] MEDS ORDERED: BENZONATATE 100 MG CAPSULE PO PRN (21:19)
[2019-02-11] MEDS ORDERED: NICOTINE 21 MG/24 HOUR PATCH TD SCH (21:30)
[2019-02-11] MEDS ORDERED: NICOTINE 21 MG/24 HOUR PATCH TD ONE (22:15)
[2019-02-12] MEDS ORDERED: CEFTRIAXONE 1GM/50ML BAG 1 GM/50 ML BAG IVPB ONE (06:00)
[2019-02-12] MEDS: ACETAMINOPHEN 500 MG TABLET PO PRN ×2 (06:57→16:48)
[2019-02-12 07:17] LABS: BLOOD UREA NITROGEN 14 mg/dL (6-20); CREATININE 0.6 mg/dL (0.7-1.2); EST GLOMERULAR FILTRATION RATE > 60 mL/min; GLUCOSE,RANDOM 139 mg/dL (74-109)
[2019-02-12 07:21] LABS: ABSOLUTE NEUTROPHIL COUNT 9.39; BASO % 0.2 % (0-6); EOS % 0.5 % (0-6); GRAN % 76.4 % (47-80); HEMATOCRIT 33.1 % (42.0-52.0); HEMOGLOBIN 10.4 gm/dl (14.0-18.0); LYMPH % 10.3 % (16-45); MEAN CELL VOLUME 87.1 fl (81-97); MEAN CORPUSCULAR HGB CONC 31.4 g/dl (32-36); MEAN PLATELET VOLUME 11.1 fl (7.4-10.4); MONO % 12.6 % (0-9); PLATELET COUNT 239 K/uL (130-400); RED CELL DISTRIBUTION WIDTH 14.9 % (11.5-14.5); WHITE BLOOD COUNT W/O DIFF 12.3 K/uL (4.2-12.2)
[2019-02-12 07:32] LABS: MEAN CORPUSCULAR HEMOGLOBIN 27.3 pg (27-33)
[2019-02-12] MEDS: NICOTINE 21 MG/24 HOUR PATCH TD SCH (10:11)
[2019-02-12] MEDS: ENOXAPARIN 40 MG/0.4 ML SYR SQ SCH (10:11)
[2019-02-12] MEDS: PANTOPRAZOLE SODIUM 40 MG TABLET PO SCH (10:51)
[2019-02-12] MEDS: LAMOTRIGINE 100 MG TABLET PO SCH (10:51)
[2019-02-12] MEDS: SIMVASTATIN 20 MG TABLET PO SCH (10:52)
[2019-02-12] MEDS: FLUOXETINE HCL 20 MG CAPSULE PO SCH (10:52)
[2019-02-12] MEDS: LISINOPRIL 20 MG TABLET PO SCH (10:52)
[2019-02-12] MEDS: CEFTRIAXONE 1GM/50ML BAG 1 GM/50 ML BAG IVPB SCH (17:35)
[2019-02-13] MEDS: CEFTRIAXONE 1GM/50ML BAG 1 GM/50 ML BAG IVPB SCH ×2 (06:04→17:13)
[2019-02-13] MEDS: PANTOPRAZOLE SODIUM 40 MG TABLET PO SCH (06:05)
--- NOTE | 2019-02-13 08:40 | History and Physical Report ---
DATE: 02/11/2019 CHIEF COMPLAINT: Cough, congestion, and short of breath. Nausea, vomiting, and diarrhea. HISTORY OF PRESENT ILLNESS: This 48-year-old male presented to the emergency department stating he has been sick since Monday, 3 days prior to admission. He was evaluated by Dr. Winter, admitted to the hospital about 7 p.m. on 02/11/2019. He states that he is sore all over, fever, chills, vomiting, diarrhea. The patient denies any flu vaccine this year. The patient reports productive yellow cough. He had bronchitis about 3 weeks ago. He states that the lower left lung hurt from that. Chest x-ray in the emergency department revealed a dense consolidation in the superior part of the right lower lobe. He was admitted to the hospital for IV antibiotics of Rocephin 1 g q.12 h. He was also started on Lovenox 40 mg subcu daily. PAST MEDICAL HISTORY: He had bronchitis approximately 2-3 weeks ago and treated with Z-Marek, hypertension, pulmonary embolism in the past, GERD controlled with Zantac, arthritis of the elbow, anxiety and depression and bipolar controlled with medications. He has COPD and does not use his inhalers but he should, he said. PAST SURGICAL HISTORY: He had a brain tumor removed at age 13, right elbow surgery, EGD and colonoscopy in 2012 at [facility]. MEDICATIONS: 1. Simvastatin 20 mg daily. 2. Zestril 20 mg daily. 3. Lamictal 200 mg daily. 4. Prozac 60 mg daily. 5. Nexium 40 mg daily. ALLERGIES: No known drug allergies. SOCIAL HISTORY: Heavy smoker, more than one pack a day. No alcohol or drug use. FAMILY HISTORY: Cancer with father, brother, sister, and grandparents. Heart disease in father, brother, sister, and grandparents. Hypertension in father, brother, sister, and grandparents. Stroke with the brother and sister. REVIEW OF SYSTEMS: HEENT: He has had cough, cold, and congestion, sore throat since 3 days prior to admission. Cardiovascular: No chest pain, palpitations, or arrhythmia. Respiratory: He was short of breath and some wheezing. Sleep History: Unremarkable. Does not have sleep apnea. Gastrointestinal: He is nauseated. No vomiting or diarrhea since he got here. Prior to that, he was vomiting. Genitourinary: No dysuria, hematuria, frequency, or burning on urination. 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 Neurological: No CVA, paralysis, or paresthesias. Endocrine: No diabetes or thyroid disease. Integument: No rash, ulcers, change in moles, or yellow skin. PHYSICAL EXAMINATION: VITALS: Height 5 feet 8 inches, weight 185 pounds. Temperature 99.6, pulse 90, blood pressure 123/78 when he came into the hospital, respiratory rate 18, pulse ox 97% on room air. His standing weight is 185 pounds standing on a scale, height 5 feet 8 inches. HEENT: Pupils are equal, round, and reactive to light and accommodation. Extraocular muscles are intact. Throat is clear. Nose is clear. Tympanic membranes are garcia. NECK: Supple. No jugular venous distention. No hepatojugular reflux. No carotid bruits. Thyroid is smooth. CARDIOVASCULAR: Regular rate and rhythm without murmurs, clicks, rubs, or gallops. RESPIRATORY: He has consolidation and egophony in the superior segment of the right lower lobe. ABDOMEN: Soft, nontender. No hepatosplenomegaly, no masses, no tenderness. Bowel sounds are active. EXTREMITIES: No pitting edema. No cyanosis, no clubbing. Full range of motion. Peripheral pulses are good. JOINTS: Moving all 4 extremities. BREASTS: Normal male breasts. NEUROLOGIC: Cranial nerves II-XII intact. No gross defects. Sensation normal, strength normal. Deep tendon reflexes equal bilaterally with Babinski negative. MENTAL STATUS: Alert and oriented x3. SKIN: No rashes noted. IMPRESSION: 1. Right lower lobe pneumonia. Superior segment. 2. Smoker. 3. Hypercholesterolemia. 4. Hypertension. 5. Bipolar. 6. Gastroesophageal reflux disease. PLAN: IV Rocephin 1 g q.12 h. MTDD
[2019-02-13] MEDS ORDERED: REMOVE PATCH 1 EACH MISC TD SCH (09:00)
[2019-02-13] MEDS: ENOXAPARIN 40 MG/0.4 ML SYR SQ SCH (09:44)
[2019-02-13] MEDS: LISINOPRIL 20 MG TABLET PO SCH (09:44)
[2019-02-13] MEDS: LAMOTRIGINE 100 MG TABLET PO SCH (09:44)
[2019-02-13] MEDS: SIMVASTATIN 20 MG TABLET PO SCH (09:45)
[2019-02-13] MEDS: FLUOXETINE HCL 20 MG CAPSULE PO SCH (09:45)
[2019-02-13] MEDS: NICOTINE 21 MG/24 HOUR PATCH TD SCH (09:46)
--- NOTE | 2019-02-13 14:39 | RADIOLOGY REPORT ---
EXAMINATION: Two View Chest Radiographs EXAM DATE: 02/13/2019 2:20 PM TECHNIQUE: Frontal and lateral views INDICATION: pneumonia COMPARISON: February 11, 2019 ENCOUNTER: Not applicable FINDINGS: The heart, mediastinum, and pulmonary vasculature are stable. Redemonstration rounded area of opacity superior segment right lower lobe which appears slightly increased in distribution in comparison to previous exam. No pneumothorax or pleural effusion left lung remains clear. IMPRESSION: Persistent rounded area of opacity superior segment right lower lobe which appears increased in distr ibution in comparison to previous exam. Dictated by: Noah Hernandez MD on 02/13/2019 2:35 PM. .
[2019-02-14] MEDS ORDERED: LEVOFLOXACIN 500 MG TABLET PO SCH (06:00)
--- NOTE | 2019-02-14 06:18 | Discharge Note ---
VTE H&P Assessment - Risk for VTE Risk for VTE: Yes Risk Level: Moderate Risk Assessment Date: 02/12/19 Risk Assessment Time: 09:00 VTE Orders Placed or Will Be Placed: Yes Discharge Medications - Discharge Medications Prescriptions: Levofloxacin [Levaquin] 500 mg PO DAILYFLUOR #10 tablet Cefdinir [Omnicef] 300 mg PO BID #20 cap Albuterol Sulfate [Proair Hfa] 1 - 2 puff IH .EVERY 4-6 HOURS PRN #1 inhaler PRN Reason: Difficulty In Breathing Benzonatate [Tessalon Perles] 100 mg PO TID PRN #20 capsule PRN Reason: Cough Home Medications: Ambulatory Orders Esomeprazole Magnesium [Nexium] 40 mg PO DAILY 01/22/19 [Last Taken 02/11/19] Acetaminophen [Tylenol 500Mg Tab] 1,000 mg PO Q8H PRN tablet 02/14/19 [Last Taken Unknown] Albuterol Sulfate [Proair Hfa] 1 - 2 puff IH .EVERY 4-6 HOURS PRN #1 inhaler 02/14/19 [Last Taken Unknown] Benzonatate [Tessalon Perles] 100 mg PO TID PRN #20 capsule 02/14/19 [Last Taken Unknown] Cefdinir [Omnicef] 300 mg PO BID #20 cap 02/14/19 [Last Taken Unknown] Fluoxetine HCl [Prozac] 60 mg PO DAILY capsule 02/14/19 [Last Taken Unknown] Lamotrigine [Lamictal] 200 mg PO DAILY tablet 02/14/19 [Last Taken Unknown] Levofloxacin [Levaquin] 500 mg PO DAILYFLUOR #10 tablet 02/14/19 [Last Taken Unknown] Nicotine [Nicotine 21Mg] 1 patch TD 0900 patch 02/14/19 [Last Taken Unknown] Simvastatin [Zocor] 20 mg PO DAILY tablet 02/14/19 [Last Taken Unknown] Discharge Note - Date Date of Discharge Note: 02/14/19 Forms: Patient Portal Access
[2019-02-14] MEDS: PANTOPRAZOLE SODIUM 40 MG TABLET PO SCH (06:33)
--- NOTE | 2019-02-14 06:33 | Discharge Note ---
VTE H&P Assessment - Risk for VTE Risk for VTE: Yes Risk Level: Moderate Risk Assessment Date: 02/12/19 Risk Assessment Time: 09:00 VTE Orders Placed or Will Be Placed: Yes Discharge Medications - Discharge Medications Prescriptions: Levofloxacin [Levaquin] 500 mg PO DAILYFLUOR #10 tablet Cefdinir [Omnicef] 300 mg PO BID #20 cap Albuterol Sulfate [Proair Hfa] 1 - 2 puff IH .EVERY 4-6 HOURS PRN #1 inhaler PRN Reason: Difficulty In Breathing Benzonatate [Tessalon Perles] 100 mg PO TID PRN #20 capsule PRN Reason: Cough Home Medications: Ambulatory Orders Esomeprazole Magnesium [Nexium] 40 mg PO DAILY 01/22/19 [Last Taken 02/11/19] Acetaminophen [Tylenol 500Mg Tab] 1,000 mg PO Q8H PRN tablet 02/14/19 [Last Taken Unknown] Albuterol Sulfate [Proair Hfa] 1 - 2 puff IH .EVERY 4-6 HOURS PRN #1 inhaler 02/14/19 [Last Taken Unknown] Benzonatate [Tessalon Perles] 100 mg PO TID PRN #20 capsule 02/14/19 [Last Taken Unknown] Cefdinir [Omnicef] 300 mg PO BID #20 cap 02/14/19 [Last Taken Unknown] Fluoxetine HCl [Prozac] 60 mg PO DAILY capsule 02/14/19 [Last Taken Unknown] Lamotrigine [Lamictal] 200 mg PO DAILY tablet 02/14/19 [Last Taken Unknown] Levofloxacin [Levaquin] 500 mg PO DAILYFLUOR #10 tablet 02/14/19 [Last Taken Unknown] Nicotine [Nicotine 21Mg] 1 patch TD 0900 patch 02/14/19 [Last Taken Unknown] Simvastatin [Zocor] 20 mg PO DAILY tablet 02/14/19 [Last Taken Unknown] Discharge Note - Date Date of Discharge Note: 02/14/19 Disposition: Home, Self-Care Condition: (1) Good Additional Instructions: follow up with family Dr in 7 days follow up with pulmonary Dr Núñez at [facility] on feb 25, please schedule before discharge chest xray feb 25 outpatient before his pulmonary appointment, please give him an order for out patient chest sray if breathing gets worse return to the ED stop smoking and use nicotene patches use inhaler albuterol 2 puffs every 4 hours while awake off work note till till feb 18 Prescriptions: Levofloxacin [Levaquin] 500 mg PO DAILYFLUOR #10 tablet Cefdinir [Omnicef] 300 mg PO BID #20 cap Albuterol Sulfate [Proair Hfa] 1 - 2 puff IH .EVERY 4-6 HOURS PRN #1 inhaler PRN Reason: Difficulty In Breathing Benzonatate [Tessalon Perles] 100 mg PO TID PRN #20 capsule PRN Reason: Cough Referrals: PALMER PAINTING MD [Primary Care Provider] - Forms: Patient Portal Access Activity at Discharge: Increase Activity as Tolerated
[2019-02-14] MEDS: CEFTRIAXONE 1GM/50ML BAG 1 GM/50 ML BAG IVPB SCH (06:34)
--- NOTE | 2019-02-15 10:40 | Discharge Summary ---
DATE: 02/14/2019 DISCHARGE DIAGNOSES: 1. Right lower lobe pneumonia, superior segment, rounded lesion on the x-ray. 2. Tobacco use disorder. 3. Hypercholesterolemia. 4. Hypertension. 5. Bipolar disorder. 6. Gastroesophageal reflux disease. 7. Chronic obstructive pulmonary disease. ATTENDING PHYSICIAN: Jhonny Torres DO REASON FOR HOSPITALIZATION: This 48-year-old male came with cough, congestion, shortness of breath, nausea, vomiting, and diarrhea. He presented to the emergency department, stated the symptoms started 3 days prior to admission. He was evaluated by Dr. Winter, admitted to the hospital for pneumonia and vomiting and diarrhea. He stated he did have a course of Z-Marek for bronchitis 3 weeks before but it did not seem to help. He was admitted with IV Rocephin and given Lovenox subcu for DVT prevention. His chest x-ray showed a superior segment of the right lower lobe, rounded type lesion. Repeat x-ray in 2 days even though clinically he was much better showed possibly a little bit worse. However, he was so much better clinically he wanted to go home at this point. I felt it was safe to go home for outpatient treatment and close followup. We will set up a consult with Pulmonary on 02/25/2019 and a repeat chest x-ray on that day too. SIGNIFICANT FINDINGS: White count on discharge was 12,300, hemoglobin 10.4. His last set of electrolytes, sodium 136, potassium 3.7, chloride 100, BUN 14, creatinine 0.6. Swabs were negative, A and B. Liver enzymes were negative. Chest x-ray as stated showing a rounded lesion in the superior part of the right lower lobe. The radiologist said it expanded a little bit. I looked at the chest x-ray and it did not seem to be as dense in the second day. Clinically it was getting much better; however, it may have expanded a little bit but not as dense. I feel he is improving clinically, so at this point I feel it is safe to discharge him and have close followup with Pulmonary on 02/25/2019, the next time they are here, and his primary doctor in a week. Chest x-ray repeat on 02/25/2019 prior to his pulmonary evaluation. THERAPY PROVIDED: The patient was given IV Rocephin q.12 h. 1 g. He improved dramatically. Even the next day he wanted to go home. Kept him another couple of days to make sure his pneumonia was improving. Clinically he was afebrile for 24 hours. Started him on a second antibiotic, Levaquin to make sure that he was getting better on the day of discharge. We will send him home on Levaquin 500 mg, cefdinir 300 mg b.i.d., and albuterol inhaler with his Tussioneolivier Gladis for prevention of cough. Drink lots of fluids. Outpatient pulmonary consult will be set up to make sure this totally resolves and to follow up with his family doctor. HOSPITAL COURSE: Much improved. CONDITION ON DISCHARGE: Much improved. He is walking around the room and in the hallway without any dyspnea. DISCHARGE INSTRUCTIONS: Follow up with his primary doctor, Dr. Ashley, in 7 days. Follow up with Pulmonary on 02/25/2019 for an outpatient evaluation and a repeat x-ray on 02/25/2019. Stop smoking. Use nicotine patches. DISCHARGE MEDICATIONS: 1. Levaquin 500 mg daily for 10 days. 2. Cefdinir 300 mg b.i.d. for 10 days. 3. Albuterol inhaler 2 puffs q.4 h. while awake. 4. Tessalon Perles 1 t.i.d. p.r.n. 5. Stop the cigarette smoking. 6. Nicotine patches step 1 for 2 weeks and then decrease to step 2 and step 3. They are OTC medications. We will give him one prescription so he gets the right thing to start off with. Outpatient chest x-ray on 02/25/2019. Off-work note from 02/10/2019 to 02/18/2019. If he needs an extension of his off-work note, his family doctor and pulmonary doctor can do that. SURAJ
== END 2019-02-14 09:00 | disposition home or self-care (01) | DRG 195 ==
LOC: ER 15:41 → MEDSURG 19:29 → OBSVTOIN 19:29
PROVIDERS: ADMIT Emergency Medicine; ATTEND Emergency Medicine
DX: J18.9 Pneumonia, unspecified organism (principal); J44.9 Chronic obstructive pulmonary disease, unspecified; R06.00 Dyspnea, unspecified; R19.7 Diarrhea, unspecified; R51 Headache; K21.9 Gastro-esophageal reflux disease without esophagitis; F31.9 Bipolar disorder, unspecified; M19.90 Unspecified osteoarthritis, unspecified site; Z86.69 Personal history of other diseases of the nervous system and sense organs; Z86.711 Personal history of pulmonary embolism
CPT/HCPCS: 71046; 80048; 80053; 85025; 87400; 94760; 94761; 96365; 96366; 96374; 99223; 99233; 99239; 99285; J0696; J1650; J2405